=== PATIENT | female | born 1985 | race Caucasian/White ===

== ENCOUNTER → 2021-01-05 | Outpatient (CLI) | payer OTHER ==
--- NOTE | 2021-01-06 05:49 | CT ---
EXAMINATION TYPE: CT abdomen pelvis w con DATE OF EXAM: 01/05/2021 COMPARISON: NONE HISTORY: 35-year-old female R10.9, unspecified abdominal pain, LUQ pain TECHNIQUE: Contiguous axial scanning of the abdomen and pelvis following administration of 100 ml Iso augie 300 IV contrast. Delayed images through the kidneys and coronal/sagittal reconstructions perform ed. CT DLP: 421.7 mGycm Automated exposure control for dose reduction was used. FINDINGS: Heart normal in size without pericardial effusion. 4 mm posterior left basilar pulmonary nodule, ques tionable clinical significance. A one-year follow-up CT can reassess. 9 mm hypodensity segment 4 of the left liver lobe, likely tiny cysts. 5 mm hypodensity right liver lo be also, likely cysts. Some focal fat along the anterior falciform ligament. Portal venous system is patent. No biliary ductal dilatation. Gallbladder, adrenal glands, kidneys, spleen, and pancreas within normal limits. No dilated small bowel, free fluid, free air. No mesenteric or retroperitoneal lymphadenopathy. Moderate stool burden. No pericolonic inflammatory change. While the appendix is not discretely visua lized, no secondary findings of acute appendicitis in the right lower quadrant. Bladder urine distended. Uterus anteverted. Multiple pelvic phleboliths. Follicular changes in the ov tiffanie. Small amount of cul-de-sac free fluid likely physiologic. No pelvic lymphadenopathy seen. Bones: Mild degenerative change left SI joint. No osseous destructive process. IMPRESSION: 1. MODERATE STOOL BURDEN. 2. SMALL AMOUNT OF CUL-DE-SAC FREE FLUID LIKELY PHYSIOLOGIC. 3. OTHERWISE, NO ACUTE INFLAMMATORY PROCESS IDENTIFIED IN THE ABDOMEN OR PELVIS TO EXPLAIN THE PATIEN T'S SYMPTOMS. 4. A 4 MM LEFT BASILAR PULMONARY NODULE OF QUESTIONABLE CLINICAL SIGNIFICANCE. A ONE-YEAR FOLLOW-UP C T OF THE CHEST CAN REASSESS AND ALSO SURVEY THE REMAINDER OF THE LUNGS.
== END | disposition home or self-care (01) ==
LOC: RADCTMAIN 17:21
PROVIDERS: ATTEND Internal Medicine Gastroenterology
DX: R10.12 Left upper quadrant pain (principal)
CPT/HCPCS: 74177; Q9967

== ENCOUNTER 2023-11-09 11:12 | Emergency (ER) | payer OTHER ==
[2023-11-09 11:36] VITALS: TEMP 98.2
--- NOTE | 2023-11-09 11:50 | ED ---
Female Urogenital HPI - General Chief complaint: Vaginal Bleeding Stated complaint: Vaginal bleeding Time Seen by Provider: 11/09/23 11:42 Source: patient, RN notes reviewed Mode of arrival: ambulatory Limitations: no limitations - History of Present Illness Initial comments: Patient is a 38-year-old female presenting to the ER with a chief complaint of vaginal bleeding. Patient states her last menstrual cycle was about 2 weeks late. She started bleeding on 11/01/23. She states it has been continuous since. She states for the past 5 days it has been extremely heavy going through 1 tampon an hour. Patient denies any history of fibroids or other logical history. She does state that she has been feeling shaky, weak and having some mild shortness of breath with exertion. She is also endorsing mild suprapubic discomfort. She states that she normally follows up with Dr. Hart but has been unable to get into see an [facility] as Dr. Hart is moving her practice. Denies any fevers, chills, chest pain, constipation/diarrhea, peripheral edema. - Related Data Previous Rx's Medication Instructions Recorded Acetaminophen-Codeine 300-30mg 1 each PO Q6H PRN #10 tablet 11/13/15 [Tylenol #3] Ibuprofen [Motrin] 600 mg PO Q6HR PRN #30 tab 11/13/15 Penicillin V Potassium [Pen Vee K] 500 mg PO QID #40 tab 11/13/15 Allergies Allergy/AdvReac Type Severity Reaction Status Date / Time cefaclor [From Ceclor] Allergy Unknown Verified 11/09/23 11:28 Sulfa (Sulfonamide Allergy Unknown Verified 11/09/23 11:28 Antibiotics) yellow dye Allergy Unknown Verified 11/09/23 11:28 Review of Systems ROS Statement: Those systems with pertinent positive or pertinent negative responses have been documented in the HPI. ROS Other: All systems not noted in ROS Statement are negative. Past Medical History Past Medical History: No Reported History History of Any Multi-Drug Resistant Organisms: None Reported Past Surgical History: Joint Replacement, Orthopedic Surgery Past Psychological History: No Psychological Hx Reported Smoking Status: Never smoker Past Alcohol Use History: None Reported Past Drug Use History: None Reported General Exam Limitations: no limitations General appearance: alert, in no apparent distress Course Vital Signs 11/09/23 11/09/23 11:25 13:06 Temperature 98.2 F Pulse Rate 89 61 Respiratory 20 18 Rate Blood Pressure 125/89 118/74 O2 Sat by Pulse 99 98 Oximetry - Reevaluation(s) Reevaluation #1: 11/09/23 11:58 Pelvic exam chaperoned by Sarah MOORE Medical Decision Making - Medical Decision Making Was pt. sent in by a medical professional or institution (, [facility], GRINDING MILL OPERATOR, urgent care, hospital, or intermediate...) When possible be specific @ -No Did you speak to anyone other than the patient for history (EMS, parent, family, police, friend...)? What history was obtained from this source @ -No Did you review nursing and triage notes (agree or disagree)? Why? @ -I reviewed and agree with nursing and triage notes Were old charts reviewed (outside hosp., previous admission, EMS record, old EKG, old radiological studies, urgent care reports/EKG's, intermediate records)? Report findings @ -No old charts were reviewed Differential Diagnosis (chest pain, altered mental status, abdominal pain women, abdominal pain men, vaginal bleeding, weakness, fever, dyspnea, syncope, headache, dizziness, GI bleed, back pain, seizure, CVA, palpatations, mental health, musculoskeletal)? @ -Differential Vaginal Bleeding: Spontaneous , threatened , molar , ectopic , bloody show, incompetent cervix, abruptioplacenta, placenta previa, uterine rupture, dysfunctional uterine bleeding, hemorrhage, uterine f ibroids, this is not meant to be an all-inclusive list. EKG interpreted by me (3pts min.). @ -None X-rays interpreted by me (1pt min.). @ -None done CT interpreted by me (1pt min.). @ -None done U/S interpreted by me (1pt. min.). @ -Transvaginal ultrasound shows a thickened endometrium which could be related to patient's menstrual cycle. There is also a simple left ovarian cyst. What testing was considered but not performed or refused? (CT, X-rays, U/S, labs)? Why? @ -None What meds were considered but not given or refused? Why? @ -None Did you discuss the management of the patient with other professionals (professionals i.e. , [facility], GRINDING M[employer] OPERATOR, lab, RT, psych nurse, social work associate, destination imagination coordinator, t eacher, executive vice president and chief financial officer, case making machine operator)? Give summary @ -No Was smoking cessation discussed for >3mins.? @ -No Was critical care preformed (if so, how long)? @ -No Were there social determinants of health that impacted care today? How? (Homelessness, low income, unemployed, alcoholism, drug addiction, transportation, low edu. Level, literacy, decrease access to med. care, fdc, rehab)? @ -Patient's current PLASTERER FOREMAN is moving. Patient is having difficulty finding PLASTERER FOREMAN for outpatient evaluation. Was there de-escalation of care discussed even if they declined (Discuss DNR or withdrawal of care, Hospice)? DNR status @ -No What co-morbidities impacted this encounter? (DM, HTN, Smoking, COPD, CAD, C ancer, CVA, ARF, Chemo, Hep., AIDS, mental health diagnosis, sleep apnea, morbid obesity)? @ -None Was patient admitted / discharged? Hospital course, mention meds given and route, prescriptions, significant lab abnormalities, going to OR and other pertinent info. @ -Discharge. Patient is a 38-year-old female presented to ER with a chief complaint of vaginal bleeding. History and physical exam were completed. Vital stable. Pelvic exam chaperoned by Sarah EMT. Exam significant for moderate cervical bleeding. Os closed. Labs obtained in the ER significant for hemoglobin of 11 otherwise unremarkable. Urine without signs of infection. Urine hcg negative. Ultrasound completed shows a thickened endometrium which could be related to patient's menstrual cycle. There is a simple cyst on the left ovary as well. Patient given 1 L of IV fluids. I discussed lab and imaging results with patient, all questions answered. I advised her to follow- up with [facility] in the next 1 to 2 days. Patient states she was having difficulty finding a PLASTERER FOREMAN and was her current physician is moving. Referral was given to on-call STATIST[facility]IAN [facility], Dr. Coronado. Strict return parameters were discussed. Patient be discharged stable condition with follow-up to [facility]. Patient expressed understanding and agreement with care plan. Undiagnosed new problem with uncertain prognosis? @ -No Drug Therapy requiring intensive monitoring for toxicity (Heparin, Nitro, Insulin, Cardizem)? @ -No Were any procedures done? @ -No Diagnosis/symptom? @ -Menorrhagia Acute, or Chronic, or Acute on Chronic? @ -Acute Uncomplicated (without systemic symptoms) or Complicated (systemic symptoms)? @ -Uncomplicated Side effects of treatment? @ -No Exacerbation, Progression, or Severe Exacerbation? @ -No Poses a threat to life or bodily function? How? (Chest pain, [place], [place], pneumonia, PE, COPD, DKA, ARF, appy, cholecystitis, CVA, Diverticulitis, Homicidal, Suicidal, threat to staff... and all critical care pts) @ -No - Lab Data Result diagrams: 11/09/23 12:03 11/09/23 12:03 Lab Results 11/09/23 11/09/23 11/09/23 Range/Units 12: 12: 12:03 WBC 5.9 (3.8-10.6) k/uL RBC 3.83 (3.80-5.40) m/uL Hgb 11.0 L (11.4-16.0) gm/dL Hct 33.0 L (34.0-46.0) % MCV 86.0 (80.0-100.0) fL MCH 28.7 (25.0-35.0) pg MCHC 33.4 (31.0-37.0) g/dL RDW 13.6 (11.5-15.5) % Plt Count 232 (150-450) k/uL MPV 8.2 Sodium (137-145) mmol/L Potassium (3.5-5.1) mmol/L Chloride (98-107) mmol/L Carbon Dioxide (22-30) mmol/L Anion Gap mmol/L BUN (7-17) mg/dL Creatinine (0.52-1.04) mg/dL Est GFR (CKD-EPI)AfAm (>60 ml/min/1.73 sqM) Est GFR (CKD-EPI)NonAf (>60 ml/min/1.73 sqM) Glucose (74-99) mg/dL Calcium (8.4-10.2) mg/dL Total Bilirubin (0.2-1.3) mg/dL AST (14-36) U/L ALT (4-34) U/L Alkaline Phosphatase (38-126) U/L Total Protein (6.3-8.2) g/dL Albumin (3.5-5.0) g/dL Urine Color Yellow Urine Appearance Clear (Clear) Urine pH 7.5 (5.0-8.0) Ur Specific [place] 1.035 (1.001-1.035) Urine Protein Trace H (Negative) Urine Glucose (UA) Negative (Negative) Urine Ketones Negative (Negative) Urine Blood Small H (Negative) Urine Nitrite Negative (Negative) Urine Bilirubin Negative (Negative) Urine Urobilinogen 3.0 (<2.0) mg/dL Ur Leukocyte Esterase Negative (Negative) Urine RBC 65 H (0-5) /hpf Urine WBC 2 (0-5) /hpf Ur Squamous Epith Cells 3 (0-4) /hpf Amorphous Sediment Rare H (None) /hpf Urine Mucus Many H (None) /hpf Urine HCG, Qual Not Detected (Not Detectd) 11/09/23 Range/Units 12:03 WBC (3.8-10.6) k/uL RBC (3.80-5.40) m/uL Hgb (11.4-16.0) gm/dL Hct (34.0-46.0) % MCV (80.0-100.0) fL MCH (25.0-35.0) pg MCHC (31.0-37.0) g/dL RDW (11.5-15.5) % Plt Count (150-450) k/uL MPV Sodium 140 (137-145) mmol/L Potassium 4.1 (3.5-5.1) mmol/L Chloride 109 H (98-107) mmol/L Carbon Dioxide 26 (22-30) mmol/L Anion Gap 5 mmol/L BUN 16 (7-17) mg/dL Creatinine 0.84 (0.52-1.04) mg/dL Est GFR (CKD-EPI)AfAm >90 (>60 ml/min/1.73 sqM) Est GFR (CKD-EPI)NonAf 87 (>60 ml/min/1.73 sqM) Glucose 90 (74-99) mg/dL Calcium 8.7 (8.4-10.2) mg/dL Total Bilirubin 0.6 (0.2-1.3) mg/dL AST 25 (14-36) U/L ALT 18 (4-34) U/L Alkaline Phosphatase 40 (38-126) U/L Total Protein 6.4 (6.3-8.2) g/dL Albumin 4.1 (3.5-5.0) g/dL Urine Color Urine Appearance (Clear) Urine pH (5.0-8.0) Ur Specific [place] (1.001-1.035) Urine Protein (Negative) Urine Glucose (UA) (Negative) Urine Ketones (Negative) Urine Blood (Negative) Urine Nitrite (Negative) Urine Bilirubin (Negative) Urine Urobilinogen (<2.0) mg/dL Ur Leukocyte Esterase (Negative) Urine RBC (0-5) /hpf Urine WBC (0-5) /hpf Ur Squamous Epith Cells (0-4) /hpf Amorphous Sediment (None) /hpf Urine Mucus (None) /hpf Urine HCG, Qual (Not Detectd) - Radiology Data Radiology results: report reviewed, image reviewed Disposition Clinical Impression: Menorrhagia Disposition: HOME SELF-CARE Condition: Stable Instructions (If sedation given, give patient instructions): Abnormal (Dysfunctional) Uterine Bleeding (ED) Additional Instructions: Please follow-up with [facility] in the next 1 to 2 days. Return to the ER for any new or worsening symptoms. Is patient prescribed a controlled substance at d/c from ED?: No Referrals: Roger Ugarte MD [Primary Care Provider] - 1-2 days Emily Coronado DO [Doctor of Osteopathic Medicine] - 1-2 days Time of Disposition: 13:46
[2023-11-09] MEDS: SODIUM CHLORIDE 0.9% 1,000 ML IV STA (12:10)
[2023-11-09 12:19] LABS: MCH 28.7 pg (25.0-35.0); MCHC 33.4 g/dL (31.0-37.0); Mean Platelet Volume 8.2; Platelet Count 232 k/uL (150-450); RBC 3.83 m/uL (3.80-5.40); RDW 13.6 % (11.5-15.5); WBC 5.9 k/uL (3.8-10.6)
[2023-11-09 12:42] LABS: Amorphous Sediment,Urine Rare /hpf; Appearance,Urine Clear (Clear); Bilirubin,Urine Negative (Negative); Blood,Urine Small (Negative); Color,Urine Yellow; Glucose,Urine (UA) Negative (Negative); Ketones,Urine Negative (Negative); Leukocyte Esterase,Urine Negative (Negative); Mucus,Urine Many /hpf; Nitrite,Urine Negative (Negative); PH, Urine 7.5 (5.0-8.0); Protein,Urine Trace (Negative); RBC,Urine 65 /hpf (0-5); Specific Gravity,Urine 1.035 (1.001-1.035); Squamous Epithelial Cell,Urine 3 /hpf (0-4); WBC,Urine 2 /hpf (0-5)
[2023-11-09 12:43] LABS: ALT 18 U/L (4-34); AST 25 U/L (14-36); African American GFR (CKD) >90 (>60 ml/min/1.73 sqM); Albumin 4.1 g/dL (3.5-5.0); Alkaline Phosphatase 40 U/L (38-126); Anion Gap 5 mmol/L; Blood Urea Nitrogen 16 mg/dL (7-17); Calcium 8.7 mg/dL (8.4-10.2); Carbon Dioxide 26 mmol/L (22-30); Chloride 109 mmol/L (98-107); Glucose 90 mg/dL (74-99); Non-African American GFR(CKD) 87 (>60 ml/min/1.73 sqM); Potassium 4.1 mmol/L (3.5-5.1); Sodium 140 mmol/L (137-145); Total Bilirubin 0.6 mg/dL (0.2-1.3); Total Protein 6.4 g/dL (6.3-8.2)
[2023-11-09 13:36] VITALS: BP 118/74; PULSE 61; RESP 18
--- NOTE | 2023-11-09 13:37 | US ---
EXAMINATION TYPE: US transvaginal DATE OF EXAM: 11/09/2023 COMPARISON: CLINICAL INDICATION: Female, 38 years old with history of vaginal bleeding; Patient states having hea vy vaginal bleeding x 8 days and this very unusual. Portable EC patient TECHNIQUE: Transvaginal (TV) Date of LMP: 09/14/2023, EXAM MEASUREMENTS: Uterus: 12.6 x 6.3 x 6.4 cm Endometrial Stripe: 3.2 cm Right Ovary: 2.7 x 1.6 x 1.2 cm Left Ovary: 4.5 x 3.5 x 2.8 cm 1. Uterus: Anteverted Appears enlarged in size. 2. Endometrium: Appears thickened and heterogenous 3. Right Ovary: follicle seen 4. Left Ovary: simple appearing cyst = 3.8 x 3.1 x 2.4 cm Spectral, color and waveform doppler imaging shows good arterial and venous flow within the ovaries ; there is no evidence for ovarian torsion. 5. Bilateral Adnexa: prominent vessels visualized 6. Posterior cul-de-sac: no free fluid IMPRESSION: 1. Thickened endometrium could be related to the patient's cycle. Correlate clinically and sonographi edgar visualization if felt clinically indicated. 2. Simple cyst left ovary.
== END 2023-11-09 14:00 | disposition home or self-care (01) ==
LOC: EC 11:12
DX: N92.0 Excessive and frequent menstruation with regular cycle (principal); N83.202 Unspecified ovarian cyst, left side; Z88.2 Allergy status to sulfonamides; Z91.041 Radiographic dye allergy status; Z88.8 Allergy status to other drugs, medicaments and biological substances
CPT/HCPCS: 36415; 76830; 80053; 81001; 81025; 85027; 93975; 96360; 96361; 99284